=== PATIENT | male | born 1985 | race Two or more races ===

== ENCOUNTER 2019-10-09 05:33 | Emergency (ER) | payer OTHER ==
[~2019-10-09] VITALS: Ht 180.3 cm; Wt 81.6 kg
--- NOTE | 2019-10-09 05:42 | NUR ---
bibra 102 for l wrist lacerartion. pt denied SI/HI at this time however per EMS that was self inflicted. Pt ambulatory to bed 15 under close supervision for safety.
--- NOTE | 2019-10-09 05:59 | NUR ---
PT BIBRA C/O LAC ON L WRIST S/P "ACCIDENTLY CUT IT" PT DENIES SI AND HI. PER EMS STATED HE WAS SI. PT ADMITS TO DRINKING. VSS. PLACED ON MONITOR AND PULSE OX. SITTER AT BEDSIDE. PROVIDED WITH URINE AND BLOOD DRAW.
--- NOTE | 2019-10-09 06:00 | NUR ---
[employer] AT BEDSIDE.
[2019-10-09 06:11] LABS: APPEARANCE,URINE CLEAR (CLEAR); BILIRUBIN,URINE NEGATIVE (NEGATIVE); BLOOD, URINE TRACE-INTA Ery/uL (NEGATIVE); COLOR,URINE YELLOW (YELLOW); KETONES,URINE NEGATIVE (NEGATIVE); LEUKOCYTE ESTERASE ,URINE NEGATIVE (NEGATIVE); NITRITE, URINE NEGATIVE (NEGATIVE); PH,URINE 5.5 (5.0-8.0); PROTEIN,URINE NEGATIVE (NEGATIVE); UGLUCOSE NEGATIVE (NEGATIVE); UROBILINOGEN,URINE 0.2 EU/dL (0.2)
--- NOTE | 2019-10-09 06:11 | NUR ---
[facility] AT BEDSIDE FOR WOUND CARE
[2019-10-09] MEDS ORDERED: BACI/NEOM/POLY B OINT PKT 1 UDPKT PACKET ONE (06:14)
[2019-10-09] MEDS ORDERED: LIDOCAINE HCL/PF 1% 30 ML SDV ONE (06:15)
[2019-10-09 06:17] LABS: BASOPHILS # (AUTO) 0.1 /CMM (0.0-0.2); BASOPHILS % (AUTO) 0.6 % (0.0-2.0); EOSINOPHILS % (AUTO) 2.7 % (0.0-6.0); HEMATOCRIT 46 % (39-51); HEMOGLOBIN 15.3 g/dL (13.5-17.5); LYMPHOCYTES # (AUTO) 6.1 /CMM (0.8-4.8); LYMPHOCYTES % (AUTO) 68.9 % (20.0-44.0); MEAN CORPUSCULAR HGB CONC 33 g/dl (31.0-36.0); MEAN CORPUSCULAR VOLUME 96 fL (80-96); MONOCYTES # (AUTO) 0.7 /CMM (0.1-1.30); MONOCYTES % (AUTO) 7.5 % (2.0-12.0); NEUTROPHILS # (AUTO) 1.8 /CMM (1.8-8.9); NEUTROPHILS % (AUTO) 20.3 % (43.0-81.0); PLATELET COUNT (AUTO) 235 /CMM (150-450); RED BLOOD CELL COUNT(AUTO) 4.76 MIL/uL (4.5-6.0); WHITE BLOOD COUNT (AUTO) 8.8 K/uL (4.3-11.0)
[2019-10-09 06:24] LABS: ALBUMIN 4.5 g/dL (3.4-5.0); BILIRUBIN,DIRECT 0.1 mg/dL (0.0-0.2); BILIRUBIN,TOTAL 0.5 mg/dL (0.2-1.0); CALCIUM, SERUM 8.6 mg/dL (8.5-10.1); POTASSIUM 3.7 mmol/L (3.5-5.1); TOTAL PROTEIN, SERUM 8.3 g/dL (6.4-8.2)
[2019-10-09 06:25] LABS: SALICYLATE 1.6 mg/dL (2.8-20.0)
[2019-10-09 06:28] LABS: BACTERIA,URINE None seen /HPF (None Seen); RBC,URINE 0-2 /HPF (0-2)
--- NOTE | 2019-10-09 06:28 | NUR ---
AT BEDSIDE FOR SUTURE
[2019-10-09 06:29] LABS: SQUAMOUS EPITHELIAL CELL,UR None Seen /HPF (None Seen); WBC,URINE NONE SEEN /HPF (0-3)
[2019-10-09] MEDS ORDERED: LIDOCAINE HCL/PF 1% 30 ML VIAL TP ONE (06:30)
[2019-10-09] MEDS ORDERED: BACI/NEOM/POLY B OINT PKT 1 UDPKT PACKET TP ONE (06:30)
[2019-10-09] MEDS ORDERED: IBUPROFEN 600 MG TABLET PO ONE ×2 (08:00→08:06)
--- NOTE | 2019-10-09 08:18 | NUR ---
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
[2019-10-09 08:30] VITALS: BP 117/68
--- NOTE | 2019-10-09 08:30 | NUR ---
Patient discharged to home in stable condition. Written and verbal after care instructions given. Patient verbalizes understanding of instruction.
--- NOTE | 2019-10-09 09:10 | NUR ---
SW Consult HAYLEY met with the pt in the Emergency Department at bedside. Pt appeared to be alert and oriented x4 (time, place, self and situation). Pt appeared to be in a dysphoric mood and presented with a distressed and agitated affect. Pt stated that he came to the Emergency Department due to a laceration on his hand that was bleeding. SW inquired what happened that caused the laceration but the pt was resistant and uncooperative. Pt stated, "The issue was that I was bleeding. I do not have to say how it happened." SW stated that his alcohol level came back as a concern. SW asked the pt about his alcohol level but the pt stated, "I do not feel like I have a problem but I do know where to seek help if I need it." Pt denied both suicidal and homicidal ideation as well as auditory and visual hallucinations. Pt was able to maintain appropriate eye contact but the pts tone of voice was restricted. Pt appeared to be guarded and dismissive. SW inquired about the pts living condition and the pt stated that he lives in [place] but did not want to release the address. HAYLEY informed him that his family was present in the ER and he stated that they were going to take him home. HAYLEY asked about his support system and the pt stated that he has his family who are involved but he does not like having them become involved in his care. SW asked how he felt about his family picking him up and he stated that he wanted to leave as soon as possible. SW stated that she will leave the resources for substance abuse in his chart if he changes his mind and would accept the resources before his discharge. Pt will be taken home with his family members.
== END 2019-10-09 08:31 | disposition home or self-care (01) ==
LOC: ER 05:33
DX: S61.512A Laceration without foreign body of left wrist, initial encounter (principal); F10.129 Alcohol abuse with intoxication, unspecified; F17.200 Nicotine dependence, unspecified, uncomplicated; X78.8XXA Intentional self-harm by other sharp object, initial encounter; Y93.89 Activity, other specified; Y92.89 Other specified places as the place of occurrence of the external cause; Y99.8 Other external cause status; Y90.8 Blood alcohol level of 240 mg/100 ml or more
CPT/HCPCS: 12002; 36415; 80048; 80076; 80305; 80307; 80329; 81001; 85025; 99283; A6403 ×2; G0480; J3490 ×2; 81000-TC